=== PATIENT | female | born 1990 | race Caucasian/White ===

== ENCOUNTER 2016-08-29 12:18 | Emergency (ER) | payer OTHER ==
[~2016-08-29] VITALS: Ht 177.8 cm; Wt 64.5 kg
[~2016-08-29 12:18] MED LIST: ADVIL200 MG PO; BACTRIM,SEPT1 TABLET PO; BENTYL10 MG PO; CAPITAL WITH C473 ML PO; CIPRO500 MG PO; CLONAZEPAM1 MG PO; LOESTRIN1 EACH PO; MEDROL DOSEPAK4 MG PO; MOTRIN800 MG PO; NORCO 5/3251 TABLET PO; OMNICEF50 MG/1 ML PO; ONDANSETRON ODT8 MG; OXYCODONE H5 MG/5 ML PO; PERCOCET 5/31 TABLET PO; PYRIDIUM100 MG PO; REGLAN10 MG PO; SEROQUEL12.5 MG PO; UNKNOWN BP MED PO; ZOFRAN ODT4 MG PO; [UNRECOGNIZED DRUG - OTHER] PO
[2016-08-29 14:33] LABS: HEMATOCRIT 37.3 % (36.0-46.0); MCH 31.6 PG (29.0-34.0); MCHC 33.2 G/DL (30.0-36.0); MCV 95.2 FL (83-99); MEAN PLAT.VOLUME 9.8 uM^3 (9.5-12.4); PLATELET COUNT 266 K/uL (156-360); RBC DIS.WIDTH-CV 12.7 % (11.8-14.6); RED BLOOD COUNT 3.92 M/uL (3.80-5.20); WHITE BLOOD COUNT 10.6 K/uL (4.1-10.2)
[2016-08-29] MEDS ORDERED: PRENATAL TABLE1 EAC3 PO (14:39)
[2016-08-29 14:43] LABS: CHLORIDE 105 mEq/L (99-109); POTASSIUM 4.2 mEq/L (3.7-5.4); SODIUM 139 mEq/L (136-147)
[2016-08-29 14:44] LABS: GLUCOSE 85 mg/dL (70-99)
[2016-08-29 14:46] LABS: ADD MIUA? YES; BILIRUBIN NEGATIVE; BLOOD NEGATIVE; COLOR YELLOW ((YELLOW)); GLUCOSE (STRIP) NEGATIVE; KETONES NEGATIVE; LEUKOCYTES MODERATE; NITRITE NEGATIVE; PROTEIN (STRIP) NEGATIVE; SPECIFIC GRAVITY 1.021 (1.000-1.030); UROBILINOGEN 0.2 MG/DL (0.2-1.0)
[2016-08-29 14:46] LABS: ANION GAP 9 MEQ/L (2-14)
[2016-08-29 14:48] LABS: GFR ESTIMATE (CALCULATED) > 59 mL/min/
[2016-08-29 14:49] LABS: UREA NITROGEN (BUN) 13 mg/dL (9-23)
[2016-08-29 15:15] LABS: QUANTITATIVE HCG 54185.5 MIU/ML
[2016-08-29 15:28] LABS: BACTERIA 1+ /HPF; EPITHELIAL CELLS 1+ /HPF; HYALINE CASTS 0-5 /LPF; MUCUS 3+ /LPF; RED BLOOD CELLS 0-5 /HPF (0-5); UNCLASSIFIED CRYSTALS 2+ /HPF
[2016-08-29] MEDS ORDERED: KEFLEX500 MG PO (16:41)
[2016-08-29 16:52] VITALS: BP 109/63
== END 2016-08-29 16:52 | disposition home or self-care (01) ==
LOC: EME 12:18 → RME 12:18
PROVIDERS: Physician Assistant
DX: O23.41 Unspecified infection of urinary tract in pregnancy, first trimester (principal); O20.0 Threatened abortion; R42 Dizziness and giddiness; Z87.891 Personal history of nicotine dependence; Z3A.01 Less than 8 weeks gestation of pregnancy
CPT/HCPCS: 76801; 80048; 81003; 84702; 85027; 87651 90; 99281; 99284

== ENCOUNTER 2016-09-18 23:09 | Day surgery (SDC) | payer OTHER ==
[~2016-09-18] VITALS: Ht 175.3 cm; Wt 66.5 kg
[~2016-09-18 23:09] MED LIST changes: +KEFLEX500 MG PO; +PRENATAL TABLE1 EAC3 PO
[2016-09-19 00:45] LABS: CHLORIDE 105 mEq/L (99-109); HEMATOCRIT 27.2 % (36.0-46.0); MCH 31.8 PG (29.0-34.0); MCHC 33.5 G/DL (30.0-36.0); MCV 95.1 FL (83-99); MEAN PLAT.VOLUME 10.1 uM^3 (9.5-12.4); PLATELET COUNT 231 K/uL (156-360); POTASSIUM 3.4 mEq/L (3.7-5.4); RBC DIS.WIDTH-CV 12.3 % (11.8-14.6); RBC DIS.WIDTH-SD 42.4 % (39-53); SODIUM 138 mEq/L (136-147); WHITE BLOOD COUNT 13.3 K/uL (4.1-10.2)
[2016-09-19 00:46] LABS: RED BLOOD COUNT 2.86 M/uL (3.80-5.20)
[2016-09-19 00:48] LABS: ANION GAP 8 MEQ/L (2-14)
[2016-09-19 00:50] LABS: GFR ESTIMATE (CALCULATED) > 59 mL/min/
[2016-09-19 00:51] LABS: UREA NITROGEN (BUN) 10 mg/dL (9-23)
[2016-09-19 01:16] LABS: GLUCOSE 91 mg/dL (70-99)
[2016-09-19 02:18] LABS: QUANTITATIVE HCG 16134.9 MIU/ML
[2016-09-19] MEDS ORDERED: HYDROCODON-ACE1 EAC7 PO (03:35)
[2016-09-19] MEDS ORDERED: MOTRIN800 MG PO (03:35)
[2016-09-19 05:26] VITALS: BP 111/58
[2016-09-19 07:50] VITALS: BP 91/51
[2016-09-19 11:42] VITALS: BP 100/60
== END 2016-09-19 13:23 | disposition home or self-care (01) ==
LOC: EXP 23:09 → EME 23:09 → SDC 09-19 04:08 → EXP 09-19 04:08 → 2EAST 09-19 04:25
PROVIDERS: Physician Assistant
PROC: 10D17ZZ Extraction of Products of Conception, Retained, Via Natural or Artificial Opening (ICD-10-PCS; principal; 2016-09-19)
DX: O03.4 Incomplete spontaneous abortion without complication (principal); Z3A.09 9 weeks gestation of pregnancy
CPT/HCPCS: 76856; 80048; 84702; 85027; 86850; 86900; 86901; 88305; 99281; 99285; G0378; J0330; J1885; J2250; J2270; J2405; J3010; J7030

== ENCOUNTER 2017-01-12 19:15 | Emergency (ER) | payer SELFPAY ==
[~2017-01-12] VITALS: Ht 177.8 cm; Wt 68.8 kg
[~2017-01-12 19:15] MED LIST changes: +HYDROCODON-ACE1 EAC7 PO
[2017-01-12 19:52] LABS: ADD MIUA? YES; BILIRUBIN NEGATIVE; BLOOD SMALL; COLOR YELLOW ((YELLOW)); GLUCOSE (STRIP) NEGATIVE; KETONES NEGATIVE; LEUKOCYTES SMALL; NITRITE NEGATIVE; PROTEIN (STRIP) NEGATIVE; SPECIFIC GRAVITY 1.006 (1.000-1.030); UROBILINOGEN 0.2 MG/DL (0.2-1.0)
[2017-01-12 19:59] LABS: BACTERIA RARE /HPF; EPITHELIAL CELLS 2+ /HPF; MUCUS TRACE /LPF; RED BLOOD CELLS 0-5 /HPF (0-5); WHITE BLOOD CELLS 0-5 /HPF (0-5)
[2017-01-12 20:24] LABS: HEMATOCRIT 38.7 % (36.0-46.0); MCH 29.3 PG (29.0-34.0); MCHC 32.6 G/DL (30.0-36.0); MEAN PLAT.VOLUME 9.7 uM^3 (9.5-12.4); PLATELET COUNT 314 K/uL (156-360); RBC DIS.WIDTH-CV 15.9 % (11.8-14.6); RBC DIS.WIDTH-SD 52.9 % (39-53); WHITE BLOOD COUNT 8.5 K/uL (4.1-10.2)
[2017-01-12 20:39] LABS: CHLORIDE 99 mEq/L (99-109); POTASSIUM 3.8 mEq/L (3.7-5.4); SODIUM 137 mEq/L (136-147)
[2017-01-12 20:41] LABS: GLUCOSE 92 mg/dL (70-99)
[2017-01-12 20:43] LABS: ANION GAP 11 MEQ/L (2-14); TOTAL BILIRUBIN 0.8 mg/dL (0.0-1.0)
[2017-01-12 20:45] LABS: ALKALINE PHOSPHATASE 62 IU/L (3-129); GFR ESTIMATE (CALCULATED) > 59 mL/min/
[2017-01-12 20:46] LABS: UREA NITROGEN (BUN) 15 mg/dL (9-23)
[2017-01-12 20:48] LABS: LIPASE 24 U/L (1.0-51.0)
[2017-01-12 20:54] LABS: QUANTITATIVE HCG < 4.0 MIU/ML
[2017-01-12] MEDS ORDERED: ZOFRAN ODT4 MG PO (22:10)
[2017-01-12] MEDS ORDERED: PERCOCET 5/31 TABLET PO (22:11)
[2017-01-12 22:39] VITALS: BP 109/73
== END 2017-01-12 22:41 | disposition home or self-care (01) ==
LOC: EME 19:15
PROVIDERS: Physician Assistant
DX: R10.32 Left lower quadrant pain (principal); N20.0 Calculus of kidney; F32.9 Major depressive disorder, single episode, unspecified; F41.9 Anxiety disorder, unspecified; F17.200 Nicotine dependence, unspecified, uncomplicated
CPT/HCPCS: 74176; 80053; 81003; 83690; 84702; 85027; 99281; 99285; J1885; J2270; J7030

== ENCOUNTER 2017-01-16 20:41 | Emergency (ER) | payer SELFPAY ==
[~2017-01-16] VITALS: Ht 177.8 cm; Wt 68.7 kg
[2017-01-16 21:15] LABS: ADD MIUA? YES; BILIRUBIN NEGATIVE; BLOOD SMALL; COLOR YELLOW ((YELLOW)); GLUCOSE (STRIP) NEGATIVE; KETONES NEGATIVE; LEUKOCYTES TRACE; NITRITE NEGATIVE; PROTEIN (STRIP) NEGATIVE; UROBILINOGEN 0.2 MG/DL (0.2-1.0)
[2017-01-16 21:22] LABS: BACTERIA RARE /HPF; EPITHELIAL CELLS 2+ /HPF; MUCUS TRACE /LPF; RED BLOOD CELLS 0-5 /HPF (0-5); UCUL ADDED? NO; WHITE BLOOD CELLS 0-5 /HPF (0-5)
[2017-01-16 23:34] LABS: CANDIDA DNA PROBE NEGATIVE; GARDNERELLA DNA PROBE POSITIVE; INTERNAL CONTROL VALID? YES
[2017-01-16] MEDS ORDERED: FLAGYL500 MG PO (23:53)
[2017-01-17 01:00] VITALS: BP 147/82
[2017-01-20 12:22] LABS: CHLAMYDIA TRACHOMATIS INVALID; NEISSERIA GONORRHOEAE INVALID
== END 2017-01-17 01:01 | disposition home or self-care (01) ==
LOC: EME 20:41
PROVIDERS: Physician Assistant
DX: N72 Inflammatory disease of cervix uteri (principal); N76.0 Acute vaginitis; Z87.442 Personal history of urinary calculi; F17.200 Nicotine dependence, unspecified, uncomplicated
CPT/HCPCS: 76856; 81003; 87210; 87480; 87491; 87510; 87591; 87660; 99281; 99284; J0696

== ENCOUNTER 2017-04-06 16:57 | Emergency (ER) | payer MEDICARE ==
[~2017-04-06] VITALS: Ht 177.8 cm; Wt 72.7 kg
[~2017-04-06 16:57] MED LIST changes: +FLAGYL500 MG PO
[2017-04-06 19:45] LABS: HEMATOCRIT 37.8 % (36.0-46.0); MCH 31.5 PG (29.0-34.0); MCHC 33.1 G/DL (30.0-36.0); MCV 95.2 FL (83-99); MEAN PLAT.VOLUME 10.2 uM^3 (9.5-12.4); PLATELET COUNT 264 K/uL (156-360); RBC DIS.WIDTH-CV 13.5 % (11.8-14.6); RBC DIS.WIDTH-SD 47.6 % (39-53); RED BLOOD COUNT 3.97 M/uL (3.80-5.20); WHITE BLOOD COUNT 6.5 K/uL (4.1-10.2)
[2017-04-06 19:55] LABS: CHLORIDE 104 mEq/L (99-109); POTASSIUM 3.7 mEq/L (3.7-5.4); SODIUM 142 mEq/L (136-147)
[2017-04-06 19:57] LABS: GLUCOSE 84 mg/dL (70-99)
[2017-04-06 19:58] LABS: ANION GAP 15 MEQ/L (2-14)
[2017-04-06 19:59] LABS: TOTAL BILIRUBIN 0.9 mg/dL (0.0-1.0)
[2017-04-06 20:01] LABS: GFR ESTIMATE (CALCULATED) > 59 mL/min/
[2017-04-06 20:02] LABS: ALKALINE PHOSPHATASE 62 IU/L (3-129)
[2017-04-06 20:03] LABS: UREA NITROGEN (BUN) 10 mg/dL (9-23)
[2017-04-06 20:04] LABS: SALICYLATE < 5.0 MG/DL (15-30)
[2017-04-06 20:13] LABS: QUANTITATIVE HCG < 4.0 MIU/ML
[2017-04-06 20:44] LABS: ADD MIUA? YES; BILIRUBIN NEGATIVE; BLOOD NEGATIVE; COLOR YELLOW ((YELLOW)); GLUCOSE (STRIP) NEGATIVE; KETONES NEGATIVE; LEUKOCYTES SMALL; NITRITE NEGATIVE; PROTEIN (STRIP) NEGATIVE; SPECIFIC GRAVITY 1.011 (1.000-1.030); UROBILINOGEN 0.2 MG/DL (0.2-1.0)
[2017-04-06 20:50] LABS: BACTERIA RARE /HPF; EPITHELIAL CELLS 2+ /HPF; MUCUS TRACE /LPF; RED BLOOD CELLS 0-5 /HPF (0-5); UCUL ADDED? NO; WHITE BLOOD CELLS 0-5 /HPF (0-5)
[2017-04-06 21:10] LABS: AMPHETAMINE NEGATIVE (500 ng/mL); BARBITURATES NEGATIVE (200 ng/mL); BENZODIAZEPINES NEGATIVE (150 ng/mL); COCAINE NEGATIVE (150 ng/mL); INTERNAL CONTROLS VALID? YES; METHADONE NEGATIVE (200 ng/mL); METHAMPHETAMINE NEGATIVE (500 ng/mL); OPIATES (MORPHINE) NEGATIVE (100 ng/mL); OXYCODONE NEGATIVE (100 ng/mL); PHENCYCLIDINE NEGATIVE (25 ng/mL); PROPOXYPHENE NEGATIVE (300 ng/mL); THC CANNABINOIDS NEGATIVE (50 ng/mL); TRICYCLIC ANTIDEPRESSANTS NEGATIVE (300 ng/mL)
[2017-04-06 22:41] VITALS: BP 126/78
== END 2017-04-07 00:18 | disposition home or self-care (01) ==
LOC: EME 16:57
PROVIDERS: Physician Assistant
DX: R51 Headache (principal); J34.89 Other specified disorders of nose and nasal sinuses; R13.10 Dysphagia, unspecified; F32.9 Major depressive disorder, single episode, unspecified; F41.9 Anxiety disorder, unspecified; F17.200 Nicotine dependence, unspecified, uncomplicated
CPT/HCPCS: 70360; 70450; 71020; 80053; 81003; 83605; 84702; 85027; 85379; 87040; 93005; 99281; 99284; G0480; J2765; J7030; Q0177

== ENCOUNTER 2017-05-31 15:53 | Emergency (ER) | payer MEDICARE ==
[~2017-05-31] VITALS: Ht 177.8 cm; Wt 72.8 kg
[~2017-05-31 15:53] MED LIST changes: +CLONAZEPAM0.5 MG PO; +IBUPROFEN600 MG PO; +QUETIAPINE FUM200 MG PO
[2017-05-31 17:11] LABS: INTERNAL CONTROL VALID? YES
[2017-05-31 17:15] LABS: ADD MIUA? YES; BILIRUBIN NEGATIVE; BLOOD SMALL; COLOR YELLOW ((YELLOW)); GLUCOSE (STRIP) NEGATIVE; KETONES NEGATIVE; LEUKOCYTES LARGE; NITRITE NEGATIVE; PROTEIN (STRIP) NEGATIVE; SPECIFIC GRAVITY 1.008 (1.000-1.030); UROBILINOGEN 0.2 MG/DL (0.2-1.0)
[2017-05-31 17:45] LABS: BACTERIA RARE /HPF; EPITHELIAL CELLS 1+ /HPF; MUCUS NONE SEEN /LPF; UCUL ADDED? YES; WHITE BLOOD CELLS 20-30 /HPF (0-5)
[2017-05-31 17:46] LABS: AMORPHOUS URATES CRYSTALS 1+; CASTS NONE SEEN /LPF; CRYSTALS PRESENT
[2017-05-31] MEDS ORDERED: DIFLUCAN150 MG PO (18:55)
[2017-05-31] MEDS ORDERED: MACROBID100 MG PO (18:55)
[2017-05-31 19:01] VITALS: BP 113/74
[2017-06-02 13:08] LABS: CHLAMYDIA TRACHOMATIS NEGATIVE; NEISSERIA GONORRHOEAE NEGATIVE
== END 2017-05-31 19:03 | disposition home or self-care (01) ==
LOC: EME 15:53
PROVIDERS: Physician Assistant
DX: N39.0 Urinary tract infection, site not specified (principal); B37.3 Candidiasis of vulva and vagina; F41.9 Anxiety disorder, unspecified; Z72.0 Tobacco use; Z87.442 Personal history of urinary calculi; Z88.8 Allergy status to other drugs, medicaments and biological substances
CPT/HCPCS: 76770; 81003; 84703; 87086; 87210; 87491; 87591; 99281; 99285

== ENCOUNTER 2017-06-06 11:18 | Emergency (ER) | payer MEDICARE ==
[~2017-06-06] VITALS: Ht 177.8 cm; Wt 71.8 kg
[~2017-06-06 11:18] MED LIST changes: +DIFLUCAN150 MG PO; +MACROBID100 MG PO
[2017-06-06 11:41] LABS: HEMATOCRIT 39.4 % (36.0-46.0); MCH 31.7 PG (29.0-34.0); MCHC 33.5 G/DL (30.0-36.0); MCV 94.7 FL (83-99); MEAN PLAT.VOLUME 9.6 uM^3 (9.5-12.4); PLATELET COUNT 286 K/uL (156-360); RBC DIS.WIDTH-CV 13.1 % (11.8-14.6); RBC DIS.WIDTH-SD 45.8 % (39-53); RED BLOOD COUNT 4.16 M/uL (3.80-5.20)
[2017-06-06 11:48] LABS: CHLORIDE 103 mEq/L (99-109); POTASSIUM 4.1 mEq/L (3.7-5.4); SODIUM 139 mEq/L (136-147)
[2017-06-06 11:50] LABS: GLUCOSE 94 mg/dL (70-99)
[2017-06-06 11:52] LABS: ANION GAP 11 MEQ/L (2-14); TOTAL BILIRUBIN 0.9 mg/dL (0.0-1.0)
[2017-06-06 11:54] LABS: ALKALINE PHOSPHATASE 67 IU/L (3-129); GFR ESTIMATE (CALCULATED) > 59 mL/min/
[2017-06-06 11:55] LABS: UREA NITROGEN (BUN) 14 mg/dL (9-23)
[2017-06-06 12:06] LABS: QUANTITATIVE HCG < 4.0 MIU/ML
[2017-06-06 15:25] LABS: ADD MIUA? YES; BILIRUBIN NEGATIVE; BLOOD NEGATIVE; COLOR AMBER ((YELLOW)); GLUCOSE (STRIP) NEGATIVE; KETONES NEGATIVE; LEUKOCYTES LARGE; NITRITE NEGATIVE; PROTEIN (STRIP) NEGATIVE; SPECIFIC GRAVITY 1.021 (1.000-1.030); UROBILINOGEN 0.2 MG/DL (0.2-1.0)
[2017-06-06 16:10] LABS: AMORPHOUS URATES CRYSTALS 1+; BACTERIA 1+ /HPF; CASTS NONE SEEN /LPF; CRYSTALS PRESENT; EPITHELIAL CELLS 2+ /HPF; MUCUS 2+ /LPF; UCUL ADDED? NO; WHITE BLOOD CELLS 0-5 /HPF (0-5)
[2017-06-06] MEDS ORDERED: FLAGYL500 MG PO (16:29)
[2017-06-06 16:59] VITALS: BP 117/90
[2017-06-06 21:20] LABS: CANDIDA DNA PROBE NEGATIVE; GARDNERELLA DNA PROBE POSITIVE; INTERNAL CONTROL VALID? YES
[2017-06-07 14:14] LABS: CHLAMYDIA TRACHOMATIS NEGATIVE; NEISSERIA GONORRHOEAE NEGATIVE
== END 2017-06-06 17:00 | disposition home or self-care (01) ==
LOC: EME 11:18
PROVIDERS: Physician Assistant
DX: A59.01 Trichomonal vulvovaginitis (principal); R10.9 Unspecified abdominal pain
CPT/HCPCS: 80053; 81003; 84702; 85027; 87210; 87480; 87491; 87510; 87591; 87660; 99281; 99284

== ENCOUNTER 2017-08-09 17:10 | Emergency (ER) | payer MEDICARE, BC ==
[~2017-08-09] VITALS: Ht 177.8 cm; Wt 76.9 kg
[2017-08-09 18:34] LABS: HEMATOCRIT 37.4 % (36.0-46.0); HEMOGLOBIN 12.7 G/DL (11.9-15.5); MCH 32.6 PG (29.0-34.0); MCV 95.9 FL (83-99); PLATELET COUNT 267 K/uL (156-360); RBC DIS.WIDTH-CV 12.9 % (11.8-14.6); RBC DIS.WIDTH-SD 45.4 % (39-53); WHITE BLOOD COUNT 9.9 K/uL (4.1-10.2)
[2017-08-09 19:06] LABS: CHLORIDE 102 MEQ/L (99-109); CREATININE 1.1 MG/DL (0.6-1.3); GFR ESTIMATE (CALCULATED) > 59 mL/min/; GLUCOSE 87 mg/dL (70-99); POTASSIUM 4.1 MEQ/L (3.7-5.4); SODIUM 139 MEQ/L (136-147); UREA NITROGEN (BUN) 17 mg/dL (9-23)
[2017-08-09 19:43] LABS: ALBUMIN 4.3 G/DL (3.2-4.8); ALKALINE PHOSPHATASE 55 IU/L (3-129); ALT (GPT) 12 IU/L (3-49); AST (GOT) 13 IU/L (2-34); DIRECT BILIRUBIN 0.1 mg/dL (0.0-0.3); LIPASE 14 U/L (1.0-51.0); TOTAL BILIRUBIN 0.6 MG/DL (0.0-1.0); TOTAL PROTEIN 7.1 G/DL (6.4-8.3)
[2017-08-09 20:15] LABS: QUANTITATIVE HCG < 4.0 MIU/ML
[2017-08-09 20:33] LABS: APPEARANCE CLOUDY ((CLEAR)); BILIRUBIN NEGATIVE; BLOOD NEGATIVE; COLOR YELLOW ((YELLOW)); GLUCOSE (STRIP) NEGATIVE; KETONES NEGATIVE; LEUKOCYTES LARGE; NITRITE NEGATIVE; PROTEIN (STRIP) NEGATIVE; SPECIFIC GRAVITY 1.025 (1.000-1.030); UROBILINOGEN 0.2 MG/DL (0.2-1.0)
[2017-08-09] MEDS ORDERED: OMEPRAZOLE40 M1 PO (20:39)
[2017-08-09] MEDS ORDERED: ZOFRAN ODT4 MG PO (20:39)
[2017-08-09] MEDS ORDERED: LEVSIN-SL0.125 MG SL (20:39)
[2017-08-09 21:10] LABS: BACTERIA 3+ /HPF; EPITHELIAL CELLS 4+ /HPF; MUCUS TRACE /LPF; RED BLOOD CELLS RARE /HPF (0-5); WHITE BLOOD CELLS 15-20 /HPF (0-5)
[2017-08-09 21:26] VITALS: BP 109/77
== END 2017-08-09 21:26 | disposition home or self-care (01) ==
LOC: EME 17:10
PROVIDERS: Nurse Practitioner Family
DX: K29.70 Gastritis, unspecified, without bleeding (principal); K21.9 Gastro-esophageal reflux disease without esophagitis; F41.9 Anxiety disorder, unspecified; Z87.442 Personal history of urinary calculi; Z72.0 Tobacco use; Z88.8 Allergy status to other drugs, medicaments and biological substances
CPT/HCPCS: 80048; 80076; 81003; 83690; 84702; 85027; 86850; 86900; 86901; 99281; 99284

== ENCOUNTER 2017-08-21 19:47 | Emergency (ER) | payer OTHER ==
[~2017-08-21] VITALS: Ht 177.8 cm; Wt 78.3 kg
[~2017-08-21 19:47] MED LIST changes: +LEVSIN-SL0.125 MG SL; +OMEPRAZOLE40 M1 PO
[2017-08-21 21:05] LABS: HEMATOCRIT 34.5 % (36.0-46.0); HEMOGLOBIN 11.5 G/DL (11.9-15.5); MCH 31.3 PG (29.0-34.0); MCHC 33.3 G/DL (30.0-36.0); PLATELET COUNT 345 K/uL (156-360); RBC DIS.WIDTH-CV 12.3 % (11.8-14.6); RBC DIS.WIDTH-SD 43.1 % (39-53); RED BLOOD COUNT 3.67 M/uL (3.80-5.20); WHITE BLOOD COUNT 10.5 K/uL (4.1-10.2)
[2017-08-21 21:13] LABS: CHLORIDE 105 mEq/L (99-109); POTASSIUM 3.6 mEq/L (3.7-5.4); SODIUM 139 mEq/L (136-147)
[2017-08-21 21:16] LABS: GLUCOSE 75 mg/dL (70-99)
[2017-08-21 21:17] LABS: TOTAL BILIRUBIN 0.2 mg/dL (0.0-1.0)
[2017-08-21 21:19] LABS: ALKALINE PHOSPHATASE 64 IU/L (3-129); CREATININE 0.7 mg/dL (0.6-1.3); GFR ESTIMATE (CALCULATED) > 59 mL/min/
[2017-08-21 21:20] LABS: UREA NITROGEN (BUN) 16 mg/dL (9-23)
[2017-08-21 21:21] LABS: AST (GOT) 16 IU/L (2-34)
[2017-08-21 21:22] LABS: ALT (GPT) 18 IU/L (3-49)
[2017-08-21 21:23] LABS: LIPASE 23 U/L (1.0-51.0)
[2017-08-21 21:32] LABS: QUANTITATIVE HCG 2639.2 MIU/ML
[2017-08-21 21:47] LABS: APPEARANCE CLOUDY ((CLEAR)); BILIRUBIN NEGATIVE; BLOOD NEGATIVE; COLOR YELLOW ((YELLOW)); GLUCOSE (STRIP) NEGATIVE; KETONES NEGATIVE; LEUKOCYTES MODERATE; NITRITE NEGATIVE; PROTEIN (STRIP) NEGATIVE; SPECIFIC GRAVITY 1.019 (1.000-1.030); UROBILINOGEN 0.2 MG/DL (0.2-1.0)
[2017-08-21 22:09] LABS: BACTERIA 2+ /HPF; EPITHELIAL CELLS 2+ /HPF; MUCUS NONE SEEN /LPF; RED BLOOD CELLS 0-5 /HPF (0-5)
[2017-08-21 23:32] VITALS: BP 120/81
== END 2017-08-21 23:34 | disposition home or self-care (01) ==
LOC: EME 19:47
PROVIDERS: Nurse Practitioner Family
DX: O99.89 Other specified diseases and conditions complicating pregnancy, childbirth and the puerperium (principal); R10.9 Unspecified abdominal pain; E86.0 Dehydration; O99.341 Other mental disorders complicating pregnancy, first trimester; F41.9 Anxiety disorder, unspecified; F32.9 Major depressive disorder, single episode, unspecified; Z3A.01 Less than 8 weeks gestation of pregnancy; Z87.891 Personal history of nicotine dependence; Z87.442 Personal history of urinary calculi; Z88.5 Allergy status to narcotic agent
CPT/HCPCS: 76801; 80053; 81003; 83690; 84702; 85027; 87086; 99281; 99285

== ENCOUNTER 2017-08-31 11:49 | Emergency (ER) | payer OTHER ==
[~2017-08-31] VITALS: Ht 177.8 cm; Wt 78.0 kg
[2017-08-31 12:38] LABS: HEMATOCRIT 36.1 % (36.0-46.0); HEMOGLOBIN 12.3 G/DL (11.9-15.5); MCH 32.1 PG (29.0-34.0); MCHC 34.1 G/DL (30.0-36.0); MCV 94.3 FL (83-99); PLATELET COUNT 265 K/uL (156-360); RBC DIS.WIDTH-CV 12.7 % (11.8-14.6); RBC DIS.WIDTH-SD 43.9 % (39-53); RED BLOOD COUNT 3.83 M/uL (3.80-5.20); WHITE BLOOD COUNT 9.2 K/uL (4.1-10.2)
[2017-08-31 12:46] LABS: CHLORIDE 104 mEq/L (99-109); SODIUM 138 mEq/L (136-147)
[2017-08-31 12:48] LABS: GLUCOSE 80 mg/dL (70-99)
[2017-08-31 12:52] LABS: CREATININE 0.7 mg/dL (0.6-1.3); GFR ESTIMATE (CALCULATED) > 59 mL/min/
[2017-08-31 12:53] LABS: UREA NITROGEN (BUN) 18 mg/dL (9-23)
[2017-08-31] MEDS ORDERED: ZOFRAN ODT4 MG PO (13:50)
[2017-08-31 14:11] LABS: QUANTITATIVE HCG 43306.4 MIU/ML
[2017-08-31 14:44] VITALS: BP 131/77
== END 2017-08-31 14:45 | disposition home or self-care (01) ==
LOC: EME 11:49
DX: O20.0 Threatened abortion (principal); O21.9 Vomiting of pregnancy, unspecified; Z3A.01 Less than 8 weeks gestation of pregnancy; O99.341 Other mental disorders complicating pregnancy, first trimester; F32.9 Major depressive disorder, single episode, unspecified; F41.9 Anxiety disorder, unspecified; Z87.442 Personal history of urinary calculi; Z87.891 Personal history of nicotine dependence; Z88.5 Allergy status to narcotic agent
CPT/HCPCS: 80048; 81003; 84702; 85027; 99281; 99284

== ENCOUNTER 2017-09-22 11:47 | Outpatient (CLI) | payer OTHER ==
[2017-09-22 11:32] VITALS: BP 121/74
[~2017-09-22 11:47] MED LIST changes: +KLONOPIN2 MG PO; +SEROQUEL200 MG PO; +ZOFRAN4 MG PO
[2017-09-22 12:02] VITALS: BP 117/65
[2017-09-22 12:41] LABS: BASOPHIL (%) 0.4 % (0-1); BASOPHIL COUNT 0.1 K/uL (0-0.1); EOSINOPHIL (%) 1.2 % (0-5); EOSINOPHIL COUNT 0.1 K/uL (0-0.3); HEMATOCRIT 36.8 % (36.0-46.0); HEMOGLOBIN 12.5 G/DL (11.9-15.5); IMMATURE GRANULOCYTE (%) 0.2 % (0.0-0.7); LYMPHOCYTE (%) 11.3 % (15-42); LYMPHOCYTE COUNT 1.3 K/uL (1.0-2.8); MCV 94.1 FL (83-99); MONOCYTE (%) 6.2 % (3-12); MONOCYTE COUNT 0.7 K/uL (0-0.8); NEUTROPHIL (%) 80.7 % (45-76); NEUTROPHIL COUNT 9.1 K/uL (1.8-6.4); PLATELET COUNT 306 K/uL (156-360); RBC DIS.WIDTH-CV 12.8 % (11.8-14.6); RBC DIS.WIDTH-SD 44.4 % (39-53); RED BLOOD COUNT 3.91 M/uL (3.80-5.20); WHITE BLOOD COUNT 11.3 K/uL (4.1-10.2)
[2017-09-22 13:01] VITALS: BP 115/59
[2017-09-22 13:52] LABS: ALBUMIN 4.2 G/DL (3.2-4.8); ALKALINE PHOSPHATASE 57 IU/L (3-129); ALT (GPT) 11 IU/L (3-49); AST (GOT) 13 IU/L (2-34); CHLORIDE 100 MEQ/L (99-109); CREATININE 0.8 MG/DL (0.6-1.3); GFR ESTIMATE (CALCULATED) > 59 mL/min/; GLUCOSE 85 mg/dL (70-99); POTASSIUM 4.3 MEQ/L (3.7-5.4); SODIUM 135 MEQ/L (136-147); TOTAL BILIRUBIN 0.3 MG/DL (0.0-1.0); TOTAL PROTEIN 7.2 G/DL (6.4-8.3); UREA NITROGEN (BUN) 15 mg/dL (9-23)
== END 2017-09-22 15:00 | disposition home or self-care (01) ==
LOC: LDRP-OP 11:47 → 2WEST 11:48
PROVIDERS: Obstetrics & Gynecology
DX: O21.9 Vomiting of pregnancy, unspecified (principal); O99.341 Other mental disorders complicating pregnancy, first trimester; F31.9 Bipolar disorder, unspecified; Z3A.09 9 weeks gestation of pregnancy; Z87.442 Personal history of urinary calculi
CPT/HCPCS: 59025; 80053; 85025; G0378

== ENCOUNTER 2017-11-12 20:07 | Emergency (ER) | payer OTHER ==
[~2017-11-12] VITALS: Ht 177.8 cm; Wt 87.5 kg
[2017-11-12 20:28] LABS: HEMATOCRIT 32.3 % (36.0-46.0); HEMOGLOBIN 11.1 G/DL (11.9-15.5); MCH 32.2 PG (29.0-34.0); MCHC 34.4 G/DL (30.0-36.0); MCV 93.6 FL (83-99); PLATELET COUNT 283 K/uL (156-360); RBC DIS.WIDTH-CV 13.3 % (11.8-14.6); RBC DIS.WIDTH-SD 45.2 % (39-53); RED BLOOD COUNT 3.45 M/uL (3.80-5.20); WHITE BLOOD COUNT 10.2 K/uL (4.1-10.2)
[2017-11-12 20:34] LABS: APPEARANCE SL.HAZY ((CLEAR)); BILIRUBIN NEGATIVE; BLOOD NEGATIVE; COLOR YELLOW ((YELLOW)); GLUCOSE (STRIP) NEGATIVE; KETONES NEGATIVE; LEUKOCYTES SMALL; NITRITE NEGATIVE; PROTEIN (STRIP) NEGATIVE; SPECIFIC GRAVITY 1.023 (1.000-1.030); UROBILINOGEN 0.2 MG/DL (0.2-1.0)
[2017-11-12 20:35] LABS: ALBUMIN 3.5 g/dL (3.2-4.8)
[2017-11-12 20:36] LABS: CHLORIDE 105 mEq/L (99-109); POTASSIUM 4.1 mEq/L (3.7-5.4); SODIUM 136 mEq/L (136-147)
[2017-11-12 20:38] LABS: GLUCOSE 85 mg/dL (70-99); TOTAL PROTEIN 6.6 g/dL (6.4-8.3)
[2017-11-12 20:40] LABS: TOTAL BILIRUBIN 0.3 mg/dL (0.0-1.0)
[2017-11-12 20:41] LABS: ALKALINE PHOSPHATASE 65 IU/L (3-129); CREATININE 0.6 mg/dL (0.6-1.3); GFR ESTIMATE (CALCULATED) > 59 mL/min/
[2017-11-12 20:43] LABS: AST (GOT) 15 IU/L (2-34); UREA NITROGEN (BUN) 12 mg/dL (9-23)
[2017-11-12 20:44] LABS: ALT (GPT) 19 IU/L (3-49)
[2017-11-12 21:13] LABS: BACTERIA RARE /HPF; EPITHELIAL CELLS 2+ /HPF; MUCUS TRACE /LPF; UCUL ADDED? NO; WHITE BLOOD CELLS 0-5 /HPF (0-5)
[2017-11-12 21:19] LABS: QUANTITATIVE HCG 25503.4 MIU/ML
[2017-11-12 23:14] VITALS: BP 119/86
== END 2017-11-12 23:15 | disposition home or self-care (01) ==
LOC: EME 20:07 → RME 20:07
DX: O26.892 Other specified pregnancy related conditions, second trimester (principal); R10.2 Pelvic and perineal pain; Z3A.17 17 weeks gestation of pregnancy; O99.342 Other mental disorders complicating pregnancy, second trimester; F32.9 Major depressive disorder, single episode, unspecified; F41.9 Anxiety disorder, unspecified; Z87.891 Personal history of nicotine dependence; Z87.442 Personal history of urinary calculi; Z88.5 Allergy status to narcotic agent
CPT/HCPCS: 76805; 80053; 81003; 84702; 85027; 99281; 99284

== ENCOUNTER 2017-12-28 11:57 | Outpatient (CLI) | payer OTHER ==
[~2017-12-28] VITALS: Ht 177.8 cm; Wt 95.4 kg
[2017-12-28 12:22] VITALS: BP 139/65
[2017-12-28 12:49] VITALS: BP 132/70
[2017-12-28 13:03] VITALS: BP 127/65
[2017-12-28 13:31] LABS: APPEARANCE CLEAR ((CLEAR)); BILIRUBIN NEGATIVE; BLOOD NEGATIVE; COLOR YELLOW ((YELLOW)); GLUCOSE (STRIP) NEGATIVE; KETONES NEGATIVE; LEUKOCYTES NEGATIVE; NITRITE NEGATIVE; PROTEIN (STRIP) NEGATIVE; UCUL ADDED? NO; UROBILINOGEN 0.2 MG/DL (0.2-1.0)
[2017-12-28 18:54] LABS: CANDIDA DNA PROBE NEGATIVE; GARDNERELLA DNA PROBE NEGATIVE; TRICHOMONAS DNA PROBE NEGATIVE
== END 2017-12-28 14:10 | disposition home or self-care (01) ==
LOC: LDRP-OP 11:57 → 2WEST 11:58
PROVIDERS: Advanced Practice Midwife
DX: O26.892 Other specified pregnancy related conditions, second trimester (principal); Z3A.23 23 weeks gestation of pregnancy
CPT/HCPCS: 59025; 81003; 87480; 87510; 87660; G0378

== ENCOUNTER 2018-02-18 12:59 | Outpatient (CLI) | payer OTHER ==
[~2018-02-18] VITALS: Ht 177.8 cm; Wt 106.5 kg
[2018-02-18] MEDS ORDERED: PRENATAL TABLE1 EAC3 PO (13:34)
[2018-02-18] MEDS ORDERED: MIRTAZAPINE7.5 MG PO (13:36)
[2018-02-18 15:01] VITALS: BP 139/80
== END 2018-02-18 15:45 | disposition home or self-care (01) ==
LOC: LDRP-OP 12:59 → 2WEST 13:00 → LDRP-OP 11-11 14:26
DX: O60.03 Preterm labor without delivery, third trimester (principal); Z3A.30 30 weeks gestation of pregnancy
CPT/HCPCS: 59025; 82731; G0378

== ENCOUNTER 2018-02-18 23:45 | Outpatient (CLI) | payer OTHER ==
[~2018-02-18 23:45] MED LIST changes: +MIRTAZAPINE7.5 MG PO
[2018-02-19 00:03] VITALS: BP 144/72
[2018-02-19 02:22] VITALS: BP 132/77
== END 2018-02-19 00:30 | disposition home or self-care (01) ==
LOC: LDRP-OP 23:45 → 2WEST 23:46 → LDRP-OP 05-14 16:55
DX: O60.03 Preterm labor without delivery, third trimester (principal); Z3A.30 30 weeks gestation of pregnancy
CPT/HCPCS: G0378